=== PATIENT | female | born 1980 | race Asian ===

== ENCOUNTER 2020-02-19 05:41 | Day surgery (SDC) | payer OTHER ==
[2020-02-19] VITALS (13 sets, daily range): BP systolic 102–129; BP diastolic 69–79
[~2020-02-19] VITALS: Ht 160 cm; Wt 44.0 kg
[~2020-02-19 05:41] MED LIST: SYNTHROID100 MCG ORAL
[2020-02-19] MEDS ORDERED: celeBREX 200mg Cap **SURGERY PATIENTS ONLY ORAL ONE (06:00)
[2020-02-19] MEDS ORDERED: ceFAZolin 1gm IVPB IVPB ONE ×2 (06:00)
[2020-02-19] MEDS ORDERED: oxyCONTIN 20mg tab ORAL ONE (06:00)
[2020-02-19] MEDS ORDERED: fentaNYL 100 mcg/2 mL IV ONE (07:06)
[2020-02-19] MEDS ORDERED: Midazolam 2mg/2ml Inj ONE (07:06)
[2020-02-19] MEDS ORDERED: Lidocaine 1% MPF 10mg/ml 5ml ONE (07:14)
[2020-02-19] MEDS ORDERED: Ketorolac 30mg Inj ONE ×2 (07:14→07:21)
[2020-02-19] MEDS ORDERED: Kenalog-40 1ml Vial ONE (07:21)
[2020-02-19] MEDS ORDERED: Bupivacaine 0.25% Inj 30ml INJ ONE (07:21)
[2020-02-19] MEDS ORDERED: Duramorph PF 5mg/10ml amp ONE (07:21)
[2020-02-19] MEDS ORDERED: Lidocaine 1% 10mg/ml/Epi 0.005mg/ml 30ml vial INJ ONE (07:21)
[2020-02-19] MEDS ORDERED: NS Irrig 2000ml IRRIG ONE (07:30)
[2020-02-19] MEDS ORDERED: LR 1000ml ONE (07:30)
[2020-02-19] MEDS ORDERED: NS 275ml ONE (07:30)
[2020-02-19] MEDS ORDERED: TransDerm Scop 1.5mg/72HR Patch TDERMAL ONE ×2 (07:32→08:30)
[2020-02-19] MEDS ORDERED: Dexamethasone 4mg/ml vial ONE (07:35)
--- NOTE | 2020-02-19 07:36 | Pre-Procedure Note/Attestation ---
Pre-Procedure Note/Attestation Complete Prior to Procedure Planned Procedure: right Procedure Narrative: knee arthroscopy, possible menisectomy Indications for Procedure Pre-Operative Diagnosis: right knee lateral meniscus tear Attestation I attest that I discussed the nature of the procedure; its benefits; risks and complications; and alternatives (and the risks and benefits of such alternatives ), prior to the procedure, with the patient (or the patient's legal care support representative). I attest that, if there was a reasonable possibility of needing a blood transfusion, the patient (or the patient's legal care support representative) was given the [facility] standardized written summary, pursuant to the [place] Blood Safety Act ([place] Health and Safety Code # 1645, as amended). I attest that I re-evaluated the patient just prior to the surgery and that there has been no change in the patient's H&P, except as documented below: Jose Francisco Cole MD February 19, 2020 07:36
--- NOTE | 2020-02-19 07:36 | Operative Note - PDOC ---
Operative Note Operative Note Pre-op Diagnosis: right knee lateral meniscus tear Procedure: see op report Post-op Diagnosis: same as pre-op plus Operative Findings: consistent w/pre-op dx studies Anesthesia: MAC Specimen: none Complications: none Condition: stable Estimated Blood Loss: none Implant(s) used?: No Jose Francisco Cole MD February 19, 2020 07:36
[2020-02-19] MEDS ORDERED: HYDROmorphone 1mg/ml Carpuject SUBQ PRN (07:45)
[2020-02-19] MEDS ORDERED: Tylenol #3 tab (300mg/30mg) ORAL PRN (07:45)
[2020-02-19] MEDS ORDERED: D5 1/2NS 1,000 ML IV SCH (07:45)
[2020-02-19] MEDS ORDERED: HYDROcodone/Acetamin 5/325 tab ORAL PRN (07:45)
--- NOTE | 2020-02-19 08:17 | Anethesia Preoperative Eval ---
Anesthesia Pre-op PMH/ROS General Date of Evaluation: February 19, 2020 Time of Evaluation: 07:15 Anesthesiologist: Mira ASA Score: ASA 2 Mallampati Score Class I : Soft palate, uvula, fauces, pillars visible Class II: Soft palate, uvula, fauces visible Class III: Soft palate, base of uvula visible Class IV: Only hard plate visible Mallampati Classification: Class II Surgeon: Douglas Diagnosis: R knee pain Surgical Procedure: R knee scope Anesthesia History: PONV Family History: no anesthesia problems Allergies: Coded Allergies: No Known Allergies (Unverified , 02/17/20) Medications: see eMAR Patient NPO?: Yes Past Medical History Cardiovascular: Denies: HTN, CAD, MS, valve dz, arrhythmia, other Pulmonary: Denies: asthma, COPD, DENISE, other Gastrointestinal/Genitourinary: Reports: GERD - mild; Denies: CRI, ESRD, other Neurologic/Psychiatric: Denies: dementia, CVA, depression/anxiety, TIA, other Endocrine: Reports: hypothyroidism - s/p thyroidectomy for CA HEENT: Denies: cataract (L), cataract (R), glaucoma, PLATINUM (L), PLATINUM (R), other Hematology/Immune: Denies: anemia, DVT, bleeding disorder, other Musculoskeletal/Integumentary: Denies: OA, RA, DJD, DDD, edema, other PMH Narrative: as above PSxH Narrative: Nephrectomy donor, thyroidectomy,breast augmentation Anesthesia Pre-op Phys. Exam Physician Exam Last Vital Signs Date Time Temp Pulse Resp B/P (MAP) Pulse Ox O2 Delivery O2 Flow Rate FiO2 02/19/20 06:33 Room Air 02/19/20 06:23 98.7 74 18 115/77 100 Constitutional: NAD Neurologic: CN 2-12 intact Cardiovascular: RRR, no M/R/G Respiratory: CTA Gastrointestinal: S/NT/ND Airway Exam Mallampati Score: Class II MO: full Neck: flexible ROM: full Teeth: intact Dentures: no upper, no lower Anesthesia Pre-op A/P Labs see chart Urine Test Test 02/19/20 06:00 Urine HCG, Qualitative Negative (NEGATIVE) Risk Assessment & Plan Assessment: ASA 2 Plan: GA with LMA Status Change Before Surgery: No Pre-Antibiotics Drug: Ancef 1gr Given Within 1 Hr of Incision: Yes Time Given: 08:02 Jonh Meyers MD February 19, 2020 08:17
[2020-02-19] MEDS ORDERED: LR 1000ml 1,000 ML IVLG SCH (08:18)
[2020-02-19] MEDS ORDERED: Ketorolac 30mg Inj IV PRN (08:30)
[2020-02-19] MEDS ORDERED: DiphenhydrAMINE 50mg/ml Inj IVP PRN (08:30)
[2020-02-19] MEDS ORDERED: Hydromorphone 0.5mg/0.5ml inj IVP PRN (08:30)
[2020-02-19] MEDS ORDERED: Metoclopramide 10mg/2ml Inj IVP PRN (08:30)
--- NOTE | 2020-02-19 08:52 | Immediate Post-Op Evaluation ---
Immediate Post-Op Evalulation Immediate Post-Op Evalulation Procedure: R knee arthroscopy, meniscectomy Date of Evaluation: February 19, 2020 Time of Evaluation: 08:51 IV Fluids: 800 Blood Products: none Estimated Blood Loss: min Urinary Output: none Blood Pressure Systolic: 126 Blood Pressure Diastolic: 74 Pulse Rate: 92 Respiratory Rate: 20 O2 Sat by Pulse Oximetry: 99 Temperature (Fahrenheit): 97.8 Pain Score (1-10): 1 Nausea: No Vomiting: No Complications none Patient Status: reacts, patent, none Hydration Status: adequate Jonh Meyers MD February 19, 2020 08:52
--- NOTE | 2020-02-19 09:54 | 48 Hour Post Anesthesia Eval ---
Post Anesthesia Evaluation Procedure: R knee arthroscopy, meniscectomy Date of Evaluation: February 19, 2020 Time of Evaluation: 09:53 Blood Pressure Systolic: 102 0: 58 Pulse Rate: 84 Respiratory Rate: 20 Temperature (Fahrenheit): 97.6 O2 Sat by Pulse Oximetry: 98 Airway: patent Nausea: No Vomiting: No Pain Intensity: 1 Hydration Status: adequate Cardiopulmonary Status: stable Mental Status/LOC: patient returned to baseline Follow-up Care/Observations: n/a Post-Anesthesia Complications: none Follow-up care needed: ready to discharge Jonh Meyers MD February 19, 2020 09:53
--- NOTE | 2020-02-19 20:00 | Operative Note - Dictated ---
DATE OF OPERATION: 02/19/2020 POSTOPERATIVE DIAGNOSIS: Right knee discoid lateral meniscus tear. POSTOPERATIVE DIAGNOSES: 1. Right knee lateral complex tear, discoid lateral meniscus. 2. Hypertrophic synovial tissue, medial, patellofemoral, and lateral compartment. PROCEDURES: 1. Right knee arthroscopic partial lateral meniscectomy. 2. Synovectomy, lateral and patellofemoral compartment. SURGEON: Jose Francisco Cole MD ANESTHESIA: MAC with local. INDICATION FOR PROCEDURE: The patient is a pleasant female, who has a significant injury to her right knee. She had continued pain. She had MRI, which showed a complex tear of the discoid lateral meniscus. Failed conservative treatment, elected to undergo right knee arthroscopy and lateral meniscectomy. Risks, limitations, expectations, complications related to the procedure were discussed in detail. All questions addressed. DESCRIPTION OF PROCEDURE: After informed consent was obtained, the patient was brought to the operating room. The patient was placed under general anesthesia. Right leg was prepped and draped in sterile manner. Time-out was performed. Inferolateral stab incision was then made. Trocar was introduced in the knee joint. There was some hypertrophic synovial tissue in patellofemoral compartment. Medial compartment was entered. Medial working portal was established. Medial compartment was free of meniscal chondral damage. Synovectomy, which began in the medial compartment, extended into intercondylar notch and lateral compartment to better visualize the knee joint. The ACL was probed and noted to be intact. Lateral compartment was entered. Lot of discoid meniscus was present, but out evaluation showed a tear through the midsubstance of the discoid meniscus. Partial lateral meniscectomy down to stable rim of meniscal tissue was performed. Camera was then placed in the patellofemoral compartment. Synovectomy was completed. Instruments were removed. Portal sites were closed with 3-0 Monocryl sutures. Steri-Strips and sterile dressing were applied. ESTIMATED BLOOD LOSS: None. COMPLICATIONS: None. SPECIMENS: None. IMPLANTS: None. Jose Francisco Cole M.D. DR: SERA JOB#: [id number] CC:
== END 2020-02-19 10:50 | disposition home or self-care (01) ==
LOC: SUR 05:41
DX: S83.281A Other tear of lateral meniscus, current injury, right knee, initial encounter (principal); M67.261 Synovial hypertrophy, not elsewhere classified, right lower leg; K21.9 Gastro-esophageal reflux disease without esophagitis; E89.0 Postprocedural hypothyroidism; Z52.4 Kidney donor; X58.XXXA Exposure to other specified factors, initial encounter; Y92.9 Unspecified place or not applicable
CPT/HCPCS: 29876; 29881; 81025; 94003; J0690; J1100; J1885; J2250; J2405; J2704; J3010; J3301; J3490; J7050; J7120; 94150